=== PATIENT | male | born 1965 | race American Indian/Alaskan Native ===

== ENCOUNTER 2016-12-03 16:38 | Emergency (ER) | payer OTHER ==
[2016-12-03] MEDS ORDERED: KEPPRA 1,000 MG/NS 0.75% 100ML 1,000 MG/100 ML BAG IV ONE (17:11)
--- NOTE | 2016-12-03 17:16 | Emergency Department Report ---
HPI - General Chief Complaint: Seizure Time Seen by Provider: 12/03/16 17:07 - HPI HPI: This is a 51-year-old -[place] male presents the emergency department by EMS from home with complaint of a seizure about 30 minutes prior to arrival. Patient says that his noticed him having some type of convulsions and he went unresponsive and appeared to have some type of postictal state where he was confused. Patient is currently awake and alert but complains of a generalized headache. He says he has a history of seizures but is not on any anti-epileptic medication. He gets his primary care done through the [facility] and says he is set up for an appointment with a neurologist in early January. He did not take anything and was not given anything for symptoms prior to presentation. Patient has a history of anxiety, schizophrenia, anger management disorder, on top of the seizures. He says he was prescribed Seroquel and takes Klonopin 1 mg 3 times a day but has not had his medications in a while. ED Past Medical Hx - Past Medical History Hx Arthritis: Yes Hx Seizures: Yes Hx Psychiatric Treatment: Yes (ANXIETY, ANGER MANAGEMENT DISORDER, SCHIZOPHRENIA ) - Surgical History Past Surgical History?: Yes Hx Cholecystectomy: Yes Additional Surgical History: LEFT HIP, LEFT ANKLE SURGERY - Social History Smoking Status: Current Every Day Smoker Substance Use Type: Prescribed - Medications Home Medications: Home Medications Medication Instructions Recorded Confirmed Last Taken Type levETIRAcetam [Keppra TAB] 500 mg PO BID #60 tablet 12/03/16 Unknown Rx ED Review of Systems ROS: Stated complaint: SEIZURE Other details as noted in HPI Comment: All other systems reviewed and negative Constitutional: denies: chills, fever Eyes: denies: eye pain, eye discharge, vision change ENT: denies: ear pain, throat pain Respiratory: denies: cough, shortness of breath, wheezing Gastrointestinal: denies: abdominal pain, nausea, diarrhea Genitourinary: denies: urgency, dysuria Musculoskeletal: denies: back pain, joint swelling, arthralgia Skin: denies: rash, lesions Neurological: headache, other (seizure). denies: numbness, paresthesias Physical Exam - Physical Exam Vital Signs: Vital Signs 12/03/16 16:54 Temperature 97.9 F Pulse Rate 84 Respiratory 18 Rate Blood Pressure 150/95 O2 Sat by Pulse 98 Oximetry Physical Exam: GENERAL: The patient is well-developed well-nourished. HEENT: Normocephalic. Atraumatic. Extraocular motions are intact. Patient has moist mucous membranes. Pupils equal reactive to light bilaterally. Patient has horizontal nystagmus. NECK: Supple. Trachea is midline. CHEST/LUNGS: Clear to auscultation. There is no respiratory distress noted. HEART/CARDIOVASCULAR: Regular. There is no tachycardia. There is no gallop rub or murmur. ABDOMEN: Abdomen is soft, nontender. Patient has normal bowel sounds. There is no abdominal distention. SKIN: There is no rash. There is no edema. There is no diaphoresis. NEURO: The patient is awake, alert, and oriented. The patient is cooperative. The patient has no focal neurologic deficits. The patient has normal speech. Cranial nerves II through XII grossly intact. No pronator drift. No dysmetria. MUSCULOSKELETAL: There is no tenderness or deformity. There is no limitation range of motion. There is no evidence of acute injury. Muscle strength 5 out of 5 upper and lower extremity bilaterally. ED Course Vital Signs 12/03/16 16:54 Temperature 97.9 F Pulse Rate 84 Respiratory 18 Rate Blood Pressure 150/95 O2 Sat by Pulse 98 Oximetry ED Medical Decision Making - Lab Data Result diagrams: 12/03/16 17:19 12/03/16 17:19 - EKG Data -: EKG Interpreted by Nd EKG shows normal: sinus rhythm, axis, intervals, QRS complexes, ST-T waves (T- wave inversions to the septal leads) Rate: tachycardia (57 bpm) - EKG Data When compared to previous EKG there are: previous EKG unavailable Interpretation: other (sinus rhythm, mild bradycardia at 57 bpm, T-wave inversions to the septal leads) - Radiology Data Radiology results: report reviewed CT of the head does not show any acute process including no hemorrhage, mass, shift, diffuse edema or skull fracture. - Medical Decision Making 51-year-old male presents to the emergency department with the complaint of a witnessed seizure just prior to presentation as well as a seizure yesterday. Patient does have a seizure history but has not been on any medications since he was last placed on Keppra here in February 2016. Patient was in the emergency department for more than 4 hours and there was no further seizure-like activity. His vital signs were stable throughout his ED course. Patient's labs were mostly unremarkable and did not show any etiology of the patient's symptoms. He had some mild elevation in the LFTs and some mild hyperkalemia that was replaced with potassium chloride. Patient was given a gram of Keppra here and a prescription to be taken at home. CT of the brain did not show any bleed, shift, mass or any acute process. EKG did not show any signs of ST elevation [place] or significant dysrhythmia. From these reasons patient appears safe for discharge home with this time. He has an appointment coming up with a neurologist through the [facility]. He will return to the ER with any worsening of his symptoms or any acute distress. - Differential Diagnosis epilepsy, withdrawal, pseudoseizure, hyponatremia, hypoglycemia Critical Care Time: No Critical care attestation.: If time is entered above; I have spent that time in minutes in the direct care of this critically ill patient, excluding procedure time. ED Disposition Clinical Impression: Seizure Disposition: DISCHARGED TO HOME OR SELFCARE Is pt being admited?: No Condition: Stable Instructions: Epilepsy (ED), Recurrent Seizures Adult (ED) Additional Instructions: These follow-up with your primary care doctor at the [facility] in the next few days. Continue with your scheduled neurology appointment but see if he can get in sooner. I have restarted you on your Keppra. Return to the emergency department with any worsening of your symptoms or any acute distress. Prescriptions: levETIRAcetam [Keppra TAB] 500 mg PO BID #60 tablet Referrals: PRIMARY CARE, [Primary Care Provider] - 3-5 Days Time of Disposition: 22:14
[2016-12-03 17:39] LABS: Basophils % (Auto) 0.7 % (0.0-1.8); Eosinophils % (Auto) 2.1 % (0.0-4.3); Hematocrit 41.6 % (35.5-45.6); Hemoglobin 13.8 gm/dl (11.8-15.2); Mean Corpuscular HGB Conc 33 % (32-34); Mean Corpuscular Hemoglobin 28 pg (28-32); Mean Corpuscular Volume 85 fl (84-94); Platelet Count 222 K/mm3 (140-440); Red Blood Count 4.87 M/mm3 (3.65-5.03); White Blood Count 6.5 K/mm3 (4.5-11.0)
--- NOTE | 2016-12-03 17:53 | Cat Scan Report ---
FINAL REPORT EXAM: CT HEAD/BRAIN WO CON HISTORY: Seizure TECHNIQUE: Noncontrast serial axial images from skull base to vertex. PRIORS: CT scan of the head from 03/02/2016 FINDINGS: There is no mass effect or midline shift. There are no abnormal intra or extra-axial fluid collections. Cortical sulci and lateral ventricles are within normal limits for size and configuration. Basilar cisterns are patent. No acute intracranial hemorrhage is identified. Visualized paranasal sinuses and mastoid air cells are well aerated. No acute osseous abnormality is identified. IMPRESSION: 1. No abnormal mass or acute intracranial hemorrhage is identified.
[2016-12-03 17:56] LABS: Alanine Aminotransferase 105 units/L (7-56); Albumin 4.4 g/dL (3.9-5); Albumin/Globulin Ratio 1.6 %; Alkaline Phosphatase 147 units/L (35-129); Anion Gap 18 mmol/L; BUN/Creatinine Ratio 8.57; Bilirubin,Total 0.4 mg/dL (0.1-1.2); Blood Urea Nitrogen 6 mg/dL (9-20); Calcium 8.9 mg/dL (8.4-10.2); Carbon Dioxide 24 mmol/L (22-30); Chloride 97.4 mmol/L (98-107); Glucose 110 mg/dL (75-100); Potassium 3.3 mmol/L (3.6-5.0); Sodium 136 mmol/L (137-145); Total Protein 7.2 g/dL (6.3-8.2)
[2016-12-03] MEDS ORDERED: K-DUR PO ONE (20:00)
[2016-12-03 21:50] LABS: Urine Drugs of Abuse Note Disclamer
[2016-12-03 22:00] LABS: Bilirubin,Urine NEG (Negative); Blood,Urine NEG (Negative); Ketones,Urine TR mg/dL (Negative); Leukocyte Esterase,Urine NEG (Negative); Mucus,Urine FEW /HPF; Nitrite,Urine NEG (Negative); Protein,Urine <15 mg/dL mg/dL (Negative); Urobilinogen,Urine < 2.0 mg/dL (<2.0)
[2016-12-03 22:43] VITALS: BP 137/70
== END 2016-12-03 23:20 | disposition home or self-care (01) ==
LOC: ED 16:38
DX: R56.9 Unspecified convulsions (principal); F17.200 Nicotine dependence, unspecified, uncomplicated
CPT/HCPCS: 36415; 70450; 80053; 80307; 81001; 82962; 85025; 93005; 93010; 96365; 99285; G0480; J1953; 80320